=== PATIENT | female | born 1980 | race Caucasian/White ===

== ENCOUNTER 2021-03-08 16:42 | Outpatient (REF) | payer MEDICARE, MEDICAID, SELFPAY | END 2021-03-08 16:43 | disposition home or self-care (01) | LOC: HO.LNP 16:42 | PROVIDERS: Visit Provider Physician Assistant | DX: J32.9 Chronic sinusitis, unspecified (principal); Z20.822 Contact with and (suspected) exposure to COVID-19 | CPT/HCPCS: U0003; U0005 ==

== ENCOUNTER 2022-06-30 22:21 | Emergency (ER) | payer MEDICARE, MEDICAID, SELFPAY ==
[2022-06-30] VITALS (9 sets, daily range): BP systolic 86–98; BP diastolic 33–39; PULSE 60–95; RESP 18–20; O2SAT 87–96; BMI 30.3
--- NOTE | ~2022-06-30 | XR_ITS ---
EXAMINATION: XR CHEST CLINICAL INFORMATION: Hypoxia COMPARISON: None available. TECHNIQUE: Frontal view of the chest was obtained. FINDINGS: Low lung volumes. Left basilar subsegmental atelectasis. No pleural effusion. No pneumothorax. Cardiomediastinal silhouette and pulmonary vascularity are within normal limits. No acute osseous abnormalities. XR/XR chest 1V IMPRESSION: No focal consolidation.
--- NOTE | 2022-06-30 22:35 | ED.GENADULT ---
HPI - General Adult General Chief complaint: ETOH/Substance Use <Bryce Gallegos - Last Filed: 07/01/22 02:02> Stated complaint: ETOH <Bryce Gallegos - Last Filed: 07/01/22 02:02> Time Seen by Provider: 06/30/22 22:35 <Bryce Gallegos - Last Filed: 07/01/22 02:02> Source: patient, EMS, RN notes reviewed and old records reviewed <Bryce Clarky - Last Filed: 07/01/22 02:02> Mode of arrival: EMS <Bryce Gallegos - Last Filed: 07/01/22 02:02> Limitations: other (History is limited secondary to intoxication) <Bryce Gallegos - Last Filed: 07/01/22 02:02> History of Present Illness HPI narrative: 42-year-old female with past medical history significant for diabetes presents for evaluation of agitation. Apparently the patient got into an argument with her significant other earlier in the evening. She was apparently breaking into his house and ?rolling around on the floor. ? He then called 911. The police found the patient in a parked car on the side of the road She admitted to police that she smoked crack today She arrives to the ER thrashing on the stretcher, swinging and swearing at staff and stated that she does not want to be here. She does not offer any complaints <Bryce Gallegos - Last Filed: 07/01/22 02:02> Related Data Home medications: Previous Rx's Medication Instructions Recorded azithromycin 250 mg tablet 250 mg PO DAILY 5 days #6 tabs 03/08/21 (Zithromax Z-Antonio) <Bryce Gallegos - Last Filed: 07/01/22 02:02> Allergies/adverse reactions: Allergies Allergy/AdvReac Type Severity Reaction Status Date / Time ibuprofen Allergy Mild hives Verified 03/08/21 14:18 Penicillins [PENICILLINS] Allergy Unknown HIVES Verified 03/08/21 14:18 <Bryce Gallegos - Last Filed: 07/01/22 02:02> Review of Systems Review of Systems: Review of systems is limited secondary to patient's behavior <Bryce Gallegos - Last Filed: 07/01/22 02:02> [facility] Social History Social History: Social History Patient Tobacco Use Status: Former Tobacco user Smoked in Last 30 Days: No Use of substances other than those prescribed or required for medical reasons: Yes Substance Use Type: Crack/Cocaine Substance Use Frequency: Chronic Longstanding Advance Directives: No Advance Directives Information Provided: Yes Patient : No <Bryce Gallegos - Last Filed: 07/01/22 02:02> Physical Exam ED Vital Signs: Vital Signs - 24 hr 06/30/22 22:49 06/30/22 23:11 06/30/22 22:38 Temperature Pulse Rate 60 88 60 Respiratory Rate 20 18 20 Blood Pressure 86/33 L Pulse Oximetry 94 96 92 Oxygen Delivery Method Room Air Room Air Room Air Oxygen Flow Rate 06/30/22 23:50 06/30/22 22:53 06/30/22 23:08 Temperature Pulse Rate 62 88 Respiratory Rate 20 20 Blood Pressure Pulse Oximetry 87 L 91 L 96 Oxygen Delivery Method Room Air Room Air Room Air Oxygen Flow Rate 06/30/22 23:23 06/30/22 23:38 06/30/22 23:53 Temperature Pulse Rate 87 88 95 Respiratory Rate 18 18 20 Blood Pressure 98/39 L Pulse Oximetry 94 93 95 Oxygen Delivery Method Room Air Room Air Nasal Cannula Oxygen Flow Rate 2 07/01/22 00:08 07/01/22 00:23 07/01/22 02:30 Temperature Pulse Rate 88 86 91 Respiratory Rate 22 H 18 16 Blood Pressure 104/52 L 114/71 Pulse Oximetry 96 96 95 Oxygen Delivery Method Nasal Cannula Nasal Cannula Nasal Cannula Oxygen Flow Rate 2 2 2 07/01/22 04:28 07/01/22 06:23 Temperature 98.3 F 97.2 F Pulse Rate 89 76 Respiratory Rate 17 17 Blood Pressure 127/71 146/86 H Pulse Oximetry 96 94 Oxygen Delivery Method Room Air Room Air Oxygen Flow Rate BMI result Body Mass Index 30.3 <Bryce Gallegos - Last Filed: 07/01/22 02:02> Vital Signs - 24 hr 06/30/22 22:49 06/30/22 23:11 06/30/22 22:38 Temperature Pulse Rate 60 88 60 Respiratory Rate 20 18 20 Blood Pressure 86/33 L Pulse Oximetry 94 96 92 Oxygen Delivery Method Room Air Room Air Room Air Oxygen Flow Rate 06/30/22 23:50 06/30/22 22:53 06/30/22 23:08 Temperature Pulse Rate 62 88 Respiratory Rate 20 20 Blood Pressure Pulse Oximetry 87 L 91 L 96 Oxygen Delivery Method Room Air Room Air Room Air Oxygen Flow Rate 06/30/22 23:23 06/30/22 23:38 06/30/22 23:53 Temperature Pulse Rate 87 88 95 Respiratory Rate 18 18 20 Blood Pressure 98/39 L Pulse Oximetry 94 93 95 Oxygen Delivery Method Room Air Room Air Nasal Cannula Oxygen Flow Rate 2 07/01/22 00:08 07/01/22 00:23 07/01/22 02:30 Temperature Pulse Rate 88 86 91 Respiratory Rate 22 H 18 16 Blood Pressure 104/52 L 114/71 Pulse Oximetry 96 96 95 Oxygen Delivery Method Nasal Cannula Nasal Cannula Nasal Cannula Oxygen Flow Rate 2 2 2 07/01/22 04:28 07/01/22 06:23 Temperature 98.3 F 97.2 F Pulse Rate 89 76 Respiratory Rate 17 17 Blood Pressure 127/71 146/86 H Pulse Oximetry 96 94 Oxygen Delivery Method Room Air Room Air Oxygen Flow Rate BMI result Body Mass Index 30.3 <Jermaine Guzman MD - Last Filed: 07/01/22 06:58> Const General: no acute distress, alert, awake, Physically active and combative <Bryce Gallegos - Last Filed: 07/01/22 02:02> Nutritional Appearance: obese <Bryce Gallegos - Last Filed: 07/01/22 02:02> Limitations: behavioral limitations <Bryce Gallegos - Last Filed: 07/01/22 02:02> [facility] Head: Yes normocephalic and Yes atraumatic <Bryce Gallegos - Last Filed: 07/01/22 02:02> Eyes Eyelids: Yes eyelids normal <Bryce Gallegos - Last Filed: 07/01/22 02:02> Conjunctivae: conjunctivae normal <Bryce Gallegos - Last Filed: 07/01/22 02:02> Sclerae: sclerae normal <Bryce Gallegos - Last Filed: 07/01/22 02:02> Corneas: corneas normal <Bryce Gallegos - Last Filed: 07/01/22 02:02> Pupils: Equal, round and reactive pupils present <Bryce Gallegos - Last Filed: 07/01/22 02:02> EOM: EOMs intact bilaterally <Bryce Gallegos Last Filed: 07/01/22 02:02> Neck Neck: Yes full ROM <Bryce Clark Last Filed: 07/01/22 02:02> Resp Effort & Inspection: normal respiratory effort, able to speak in complete sentences and not labored <Bryce Gallegos - Last Filed: 07/01/22 02:02> GI Inspection: No Abdominal wall edema, No distended and No incision <Bryce Clark Last Filed: 07/01/22 02:02> Neuro Cranial nerves: Yes Equal, round and reactive pupils present <Bryce Gallegos - Last Filed: 07/01/22 02:02> Extrem Other: Moving all extremities well <Bryce Gallegos Last Filed: 07/01/22 02:02> Psych Appearance: disheveled <Bryce Gallegos - Last Filed: 07/01/22 02:02> Attitude: not cooperative and Belligerent attititude/behavior present <Bryce Gallegos Last Filed: 07/01/22 02:02> Course Reevaluation(s) Reevaluation #1: Patient is now much more awake, alert and oriented. She is much more cooperative as well, she is out of restraints. She did become hypoxic after being medicated. I did get a portable chest x-ray to evaluate for aspiration given her reported alcohol and cocaine abuse. Although I do feel that the epoxy was related to the sedation medications that she received for her safety. The patient offers no complaints on re-evaluation. She reports that she is homeless. The patient will be observed throughout the night and can likely be safely discharged in the morning. Patient be signed out to the overnight team pending re-evaluation and likely discharge <Bryce Gallegos - Last Filed: 07/01/22 02:02> Patient is now much more awake, alert and oriented. She is much more cooperative as well, she is out of restraints. She did become hypoxic after being medicated. I did get a portable chest x-ray to evaluate for aspiration given her reported alcohol and cocaine abuse. Although I do feel that the epoxy was related to the sedation medications that she received for her safety. The patient offers no complaints on re-evaluation. She reports that she is homeless. The patient will be observed throughout the night and can likely be safely discharged in the morning. Patient be signed out to the overnight team pending re-evaluation and likely discharge <Jermaien Guzman MD - Last Filed: 07/01/22 06:58> Time: 02:00 <Bryce Gallegos - Last Filed: 07/01/22 02:02> Reevaluation #2: Patient was awake and alert, very pleasant cooperative, she was discharged home. <Jermaine Guzman MD - Last Filed: 07/01/22 06:58> Time: 06:58 <Jermaine Guzman MD - Last Filed: 07/01/22 06:58> Medications Administered Discontinued Medications Generic Name Dose Route Start Last Admin Trade Name Freq PRN Reason Stop Dose Admin Diphenhydramine HCl 50 mg 06/30/22 22:40 06/30/22 22:38 Diphenhydramine Hcl 50 Mg/Ml Vial IM 06/30/22 22:41 50 mg ONCE ONE Administration Haloperidol Lactate 5 mg 06/30/22 22:40 06/30/22 22:38 Haloperidol Lactate 5 Mg/Ml Vial IM 06/30/22 22:41 5 mg STAT STA Administration Lorazepam 2 mg 06/30/22 22:40 06/30/22 22:38 Lorazepam 2 Mg/Ml Vial IM 06/30/22 22:41 2 mg STAT STA Administration <Bryce Gallegos - Last Filed: 07/01/22 02:02> Medications Administered Discontinued Medications Generic Name Dose Route Start Last Admin Trade Name Freq PRN Reason Stop Dose Admin Diphenhydramine HCl 50 mg 06/30/22 22:40 06/30/22 22:38 Diphenhydramine Hcl 50 Mg/Ml Vial IM 06/30/22 22:41 50 mg ONCE ONE Administration Haloperidol Lactate 5 mg 06/30/22 22:40 06/30/22 22:38 Haloperidol Lactate 5 Mg/Ml Vial IM 06/30/22 22:41 5 mg STAT STA Administration Lorazepam 2 mg 06/30/22 22:40 06/30/22 22:38 Lorazepam 2 Mg/Ml Vial IM 06/30/22 22:41 2 mg STAT STA Administration <Jermaine Guzman MD - Last Filed: 07/01/22 06:58> Medical Decision Making Medical Decision Making MDM Narrative: 10:39 p.m.. Patient arrives swearing and swinging at staff. She is a threat to herself and staff worse. She was medicated with Benadryl 50 mg, Ativan 2 mg and Haldol 5 mg all IM. <Bryce Gallegos - Last Filed: 07/01/22 02:02> Differential Diagnosis Alcohol abuse Cocaine abuse Polysubstance abuse Cassandra Psychosis <Bryce Gallegos - Last Filed: 07/01/22 02:02> Lab Data Labs: Lab Results 07/01/22 Range/Units 00:22 POC Glucose 128 H (60-115) mg/dL <Bryce Gallegos - Last Filed: 07/01/22 02:02> Lab Results 07/01/22 Range/Units 00:22 POC Glucose 128 H (60-115) mg/dL <Jermaine Guzman MD - Last Filed: 07/01/22 06:58> Discharge Plan Discharge Clinical Impression: Polysubstance abuse <Bryce Gallegos - Last Filed: 07/01/22 02:02> Patient Disposition: Home, Self-Care <Bryce Gallegos - Last Filed: 07/01/22 02:02> Instructions: Polysubstance Abuse (ED) <Bryce Gallegos - Last Filed: 07/01/22 02:02> Additional Instructions: For illicit substances including crack and cocaine. You should not drink in excess Follow-up with your primary doctor <Bryce Gallegos - Last Filed: 07/01/22 02:02> Prescriptions: No Action azithromycin [Zithromax Z-Antonio] 250 mg tablet 250 mg PO DAILY 5 Days Qty: 6 0RF Rx Instructions: 2 pills day one then 1 pill per day x 4 days <Bryce Gallegos - Last Filed: 07/01/22 02:02> Interventions: [place]-Suicide Risk Severity Scale Last Done: 07/01/22 06:20 <Bryce Gallegos - Last Filed: 07/01/22 02:02>
[2022-06-30] MEDS: LORazepam 2 MG/ML VIAL IM (22:38)
[2022-06-30] MEDS: diphenhydrAMINE HCL 50 MG/ML VIAL IM (22:38)
[2022-06-30] MEDS: Haloperidol Lactate 5 MG/ML VIAL IM (22:38)
--- NOTE | 2022-06-30 23:01 | PC.NURSE ---
late entry-this rn assumed care of pt @ 2300. pt previously chemically and physically restrained by outgoing rn per orders.
--- NOTE | 2022-06-30 23:13 | PC.NURSE ---
late entry- this rn receiving bedside report from outgoing nurse. BP at this time 86/33. jarrell sy made aware of BP at this time. per dinora sy placed pt in [place] and recheck in 30 minutes. pt remains on 15 minute checks due to physical restraints
--- NOTE | 2022-06-30 23:50 | PC.NURSE ---
this rn at bedside. spo2 desat to 87% RA. this rn placed pt on 2LPM NC spo2 95% at this time. dinora sy made aware of pt desatting to 87%, order placed for 2 LPM NC. pt remains sleeping at this time. rise and fall of chest noted
[2022-07-01 00:08] VITALS: PULSE 88; RESP 22; O2SAT 96
[2022-07-01 00:23] VITALS: BP 104/52; PULSE 86; RESP 18; O2SAT 96
--- NOTE | 2022-07-01 00:23 | PC.NURSE ---
at 0023 this rn removed all four point physical restraints. pt remained sleeping on stretcher at this time. RR 18 nonlabored. pt remains on 2LPM NC
[2022-07-01 00:25] LABS: Glucose, Whole Blood 128 mg/dL (60-115)
--- NOTE | 2022-07-01 02:15 | PC.NURSE ---
this rn made security aware of pt belongings at bedside. per security belongings may remain at bedside, security searched belongings to ensure safety.
--- NOTE | 2022-07-01 02:20 | PC.NURSE ---
late entry- this rn and hr shared services consultant changed pt into hospital gown prior to chest xray. pt compliant while changing. this rn remained at bedside during portable chest xray. pt compliant during performance of xray. pt repositioned to back at this time
[2022-07-01 02:30] VITALS: BP 114/71; PULSE 91; RESP 16; O2SAT 95
--- NOTE | 2022-07-01 03:26 | PC.NURSE ---
Late entry: pt. arrived via EMS and police escort around 2230. Pt. agitated and physically combative at this time. Pt. not alert and oriented. Pt. just yelling I don't want to be here and I need my Devan . For the safety of the pt. as well as staff, pt replaced in 4 point restraints and medically restrained. Provider at bedside. Pt. continued to thrash around on bed for about 15 minutes before becoming quiet and falling asleep. Restraint paperwork started. Report given to incoming RN at 2300.
[2022-07-01 04:28] VITALS: BP 127/71; PULSE 89; RESP 17; TEMP 36.8; O2SAT 96
--- NOTE | 2022-07-01 04:37 | PC.NURSE ---
this rn and redevelopment manager walked with pt too bathroom. pt initially unsteady. pt instructed to open eyes while walking, gait improved in doing this. pt assisted back into bed at this time. pt calm and cooperative at this time
[2022-07-01 06:23] VITALS: BP 146/86; PULSE 76; RESP 17; TEMP 36.2; O2SAT 94
--- NOTE | 2022-07-01 06:24 | PC.NURSE ---
this rn contacted [place] police dept. pt car was towed per pd pt will need to present to pd to collect proper forms to [employer] picker car. once forms are gathered [facility] pt made aware of this plan and agreeable. pt calm and cooperative. pt assisted into home clothes. charge attendant assisting in coordinating lyft ride to police station. pt denies si/hi at this time. pt feels safe to go home
--- NOTE | 2022-07-01 06:54 | PC.NURSE ---
pt able to dress self prior to discharge. pt tolerated po fluids at time of discharge. vss. skin pwd. pt ambulatory at discharge. lyft ride arranged for pt by supervisor in charge. this rn assisted pt to waiting room to await for ride. security with pt to assist with locating ride as pt states she does not have glasses with her. pt provided with discharge packet. pt verbalizes understanding of discharge plan
== END 2022-07-01 06:57 | disposition home or self-care (01) ==
PROVIDERS: Emergency Provider Emergency Medicine Emergency Medical Services
DX: F10.129 Alcohol abuse with intoxication, unspecified (principal); Y90.9 Presence of alcohol in blood, level not specified; R09.02 Hypoxemia; F14.10 Cocaine abuse, uncomplicated; Z79.899 Other long term (current) drug therapy
CPT/HCPCS: 71045; 82947; 96372; 99285; J1200; J2060

== ENCOUNTER 2024-04-07 10:38 | Emergency (ER) | payer MEDICARE, MEDICAID, SELFPAY ==
[2024-04-07 11:49] VITALS: BP 173/86; PULSE 72; RESP 18; TEMP 36.4; O2SAT 96; BMI 28.2
[2024-04-07 12:00] VITALS: BP 188/97; PULSE 70; RESP 16; TEMP 36.8; O2SAT 99
--- OUTSIDE RECORDS SUMMARY | 2024-04-07 12:02 | XMS_ITS ---
Author Organization [facility] Address [address], [place] [phone] Care Team Providers Care Computer Compositor Name Role Phone No, PCP Primary Care Provider Sandrine More Encounters Encounter Location Date Provider Diagnosis [facility] [address] [place] [phone] 02/27/2024 Sandrine Schafeer Plan Of Treatment No Information Progress Notes * Ayse MORALESDOB:1980 (43 yo F)Acc No.[id number]:02/27/2024 Case Management New Patient:?Ayse MORALES Provider:?Sandrine Schaefer :1980???Age:43 Y???Sex:Female D ate:02/27/2024 Address:[address] [id number] Pcp:PCP No Subjective: * Chief Complaints: * ??? Objective: Assessment: Plan: * Treatment: * Images: Billing Information: * Visit Code:? * Procedure Codes:? Care Plan Details* * Electronic signature of Jose Schaefer on 04/07/2024 at 12:01 PM EST Sign off status: Pending * Provider:?Sandrine Schaefer Date:? Generated for Monica dominguez/Lili/eTransmitting on:?04/07/2024 12:01 PM EST
--- OUTSIDE RECORDS SUMMARY | 2024-04-07 12:02 | XMS_ITS ---
Author Organization [facility] Address [address], [place] [phone] Care Team Providers Care Filler Block Inserter Remover Name Role Phone No, PCP Primary Care Provider Sandrine More Encounters Encounter Location Date Provider Diagnosis [facility] [address] [place] [phone] 02/23/2024 Sandrine Schaefer Plan Of Treatment No Information Progress Notes * Ayse MORALESDOB:1980 (43 yo F)Acc No.[id number]:02/23/2024 Case Management Patient:?Ayse MORALES Provider:?Sandrine Schaefer :1980???Age:43 Y???Sex:Female D ate:02/23/2024 Address:[address] [id number] Pcp:PCP No Subjective: * Chief Complaints: * ??? * Medical History:? Objective: Assessment: Plan: * Treatment: * Images: Billing Information: * Visit Code:? * Procedure Codes:? Care Plan Details* * Electronic signature of Jose Schaefer on 04/07/2024 at 12:01 PM EST Sign off status: Pending * Provider:Delmer Schaefer Date:? Generated for Monica dominguez/Lili/eTransmitting on:?04/07/2024 12:01 PM EST
--- OUTSIDE RECORDS SUMMARY | 2024-04-07 12:02 | XMS_ITS ---
Author Organization [facility] Address [address] [place] [phone] Care Team Providers Care Family Service Counselor Name Role Phone No, PCP Primary Care Provider Sandrine More [phone] Encounters Encounter Location Date Provider Diagnosis [facility] [address] [place] [phone] 02/12/2024 Sandrine Schaefer Plan Of Treatment No Information Progress Notes * Ayse MORALESDOB:1980 (43 yo F)Acc No.[id number]:02/12/2024 Case Management Patient:?DumfriesAyse kowalski Provider:?Sandrine Schaefer :1980???Age:43 Y???Sex:Female D ate:02/12/2024 Address[place] [id number] Pcp:PCP No Subjective: * Chief Complaints: * ??? * HPI: ???Social Service:?Referral Source?returning client.?Interpretation for medical provider?housing.? Client came in with documents etc. certificate., social security card to complete housing applications.Client reports still being outside due to being recently evicted. * Medical History:? Objective: Assessment: Plan: * Treatment: * Images: Billing Information: * Visit Code:? * Procedure Codes:? Care Plan Details* * Sign off status: Completed true * Provider:?Sandrine Schaefer Date:? Generated for Monica dominguez/Lili/Dashawnitting on:?04/07/2024 12:02 PM EST History and Physical Notes * HPI (History of Present Illness) Category Sub-Category Detail Notes Social Service Referral Source returning client Interpretation for medical provider hous ing
--- OUTSIDE RECORDS SUMMARY | 2024-04-07 12:02 | XMS_ITS | Patient Health Record ---
Author Organization [facility] Address [address] [place], [place] [phone] Care Team Providers Care Byproducts Operator Name Role Phone No, PCP Primary Care Provider Sandrine More Unavailable Reason For Referral No Information Encounters Encounter Location Date Provider Diagnosis [facility] [address] [place] [phone] 02/12/2024 Sandrine Schaefer [facility] [phone] 02/09/2024 Sandrine Schaefer Plan Of Treatment No Information Insurance Providers Payer Name Payer Address Payer Phone Subscriber Number Group Number Insured Name Patient Relationship to Insured Coverage Start Date Coverage End Date [place] Part [place] [employer] [address] [place] [phone] [id number] Ayse Morales Self - patient is the insured 4 4
--- NOTE | 2024-04-07 12:53 | ED_ITS ---
HPI - General Adult General Chief complaint: Skin/Abscess/Foreign Body Stated complaint: rash Time Seen by Provider: 04/07/24 11:52 History of Present Illness ED Provider: Drake Day HPI narrative: 43 yold female with pmh of DM, ashtma, depression, GERD presents to the ED for medication refill, generalized rash numbness tingling of both feet and arm. Patient denies any referred chest pain, neck pain, fever, chills, drooling, back pain, left shoulder pain, or shortness of breath. Patient states she has been without her medications for the past 2 months due to inability to get into a PCP practice.. Patient having rash since this past . Sometimes itchy. Patient denies any chest pain, back pain, urinary/bowel incontinence, upper or lower extremity weakness/paralysis. Patient need medication refill for Giardia in, lisinopril, Seroquel, paroxetine, Wellbutrin, for amantadine, gabapentin, and levothyroxine Related Data Previous Rx's ?Medication ?Instructions ?Recorded azithromycin 250 mg tablet 250 mg PO DAILY 5 days #6 tabs 03/08/21 (Zithromax Z-Antonio) albuterol sulfate 90 mcg/actuation 2 puff inhalation Q4-6H PRN 04/07/24 aerosol inhaler shortness of breath or wheezing #8.5 grams bupropion HCl 300 mg 24 hr tablet, 300 mg PO DAILY 30 days #30 tabs 04/07/24 extended release cephalexin 500 mg capsule 500 mg PO QID 7 days #28 caps 04/07/24 diphenhydramine HCl 25 mg capsule 25 mg PO TID PRN allergic reaction 04/07/24 (Benadryl) #21 caps doxycycline hyclate 100 mg capsule 100 mg PO BID 7 days #14 caps 04/07/24 empagliflozin 25 mg tablet 25 mg PO DAILY 30 days #30 tabs 04/07/24 (Jardiance) famotidine 40 mg tablet (Pepcid) 40 mg PO DAILY 30 days #30 tabs 04/07/24 gabapentin 300 mg capsule 300 mg PO TID 30 days #90 caps 04/07/24 levothyroxine 175 mcg capsule 175 mcg PO DAILY 30 days #30 caps 04/07/24 lisinopril 10 mg tablet 10 mg PO DAILY 30 days #30 tabs 04/07/24 paroxetine HCl 40 mg tablet 40 mg PO DAILY 30 days #30 tabs 04/07/24 prednisone 20 mg tablet 40 mg (2 x 20 mg) PO DAILY 5 days 04/07/24 #10 tabs quetiapine 25 mg tablet 25 mg PO BEDTIME 30 days #30 tabs 04/07/24 Allergies Allergy/AdvReac Type Severity Reaction Status Date / Time ibuprofen Allergy Mild hives Verified 04/07/24 11:52 Penicillins [PENICILLINS] Allergy Unknown HIVES Verified 04/07/24 11:52 Review of Systems 2 Review of Systems: Rash, medication refill Yes all other systems are reviewed and are negative [facility] Social History Social History Patient Tobacco Use Status: Former Tobacco user Substance Use Type: Crack/Cocaine Advance Directives: Yes Advance Directives Information Provided: Yes Advance Directives on File: No Physical Exam ED Vital Signs: Vital Signs - 24 hr 04/07/24 11:49 04/07/24 12:00 04/07/24 14:00 Temperature 97.5 F 98.3 F 97.4 F Pulse Rate 72 70 67 Respiratory Rate 18 16 16 Blood Pressure 173/86 H 188/97 H 179/88 H Pulse Oximetry 96 99 97 Oxygen Delivery Method Room Air Room Air Room Air 04/07/24 14:54 Temperature 97.4 F Pulse Rate 67 Respiratory Rate 16 Blood Pressure 179/88 H Pulse Oximetry 97 Oxygen Delivery Method Room Air BMI result Body Mass Index 28.2 Const General: cooperative, healthy appearing, comfortable, no acute distress, well developed, alert and awake Orientation/consciousness: patient oriented x3 HENMT Head: Yes normal to inspection, Yes No palpable skull fracture present, Yes normocephalic and Yes atraumatic Eyes General: appearance normal, both eyes and all related structures Neck Neck: Yes normal visual inspection, Yes full ROM, Yes no lymphadenopathy, Yes no meningeal signs, Yes trachea midline, Yes supple, No anterior neck swelling and No tender Chest Chest palpation & inspection: normal inspection of the chest and normal palpation of entire chest wall Resp Effort & Inspection: normal respiratory effort and able to speak in complete sentences Auscultation: clear to auscultation bilaterally Cardio Jugular venous distension: no JVD Heart sounds: S1 normal heart sound present and S2 normal heart sound present GI Inspection: Yes normal to inspection Palpation (GI): Soft to palpation, not firm, nontender, no guarding and not rigid General: Yes no CVA tenderness Back/Spine/Pelvis Back: no CVA tenderness and No back tenderness Skin Other: General skin exam: no rashes or lesions noted, elasticity normal and turgor normal Neuro General: patient oriented x3, gait normal, tone normal, moves all extremities, Normal light touch and pain sensation, no meningeal signs, no focal motor deficits, CN's II-XI intact bilaterally and normal sensation to monofilament Extrem General: Yes normal to inspection, Yes full ROM and Yes capillary refill normal Psych Appearance: grossly normal, well kempt and not disheveled Medical Decision Making Medical Decision Making MDM Narrative: 43-year-old female presents to ED for neuropathy of upper and lower extremities without any referred chest pain, slurred speech, nausea, vomiting, headache, or dizziness. Patient also presents to ED for medication refill. Patient has secondary complaint of generalized rash since Monday that is itchy. Patient denies any history of IV drug use but admits to polysubstance abuse. Glucose POC 137. Vital signs stable. Patient explained could be allergic reaction versus MRSA. Patient prefers oral antibiotic trial and if no improvement will agree to admission when he return to the ED. Presently not suspecting cauda equina or epidural abscess. Patient will be given refill for Jiardian, gabapentin, lisinopril, seroquel, welbutrin,famotidine, lebothyroixine, albuterol . Patient given information for home health care pharmacy. Patient explained worrisom signs and will return to the ED. not suspecting IN, epidural abscess, cauda equinus syndrome, sepsis, aortic dissection, withdrawal from drugs, stroke, slight deficiency, anyphylaxis, or any other life-threatening etiology. Patient given meds for a month. Differential Diagnosis Differential Diagnoses: The differential diagnosis associated with the presentation includes (MRSA, allergic reaction, medication refill) Admission/Observation Consideration of admission/observation: Escalation of care including admission/observation considered Lab Data Labs: Lab Results 04/07/24 Range/Units 13:02 POC Glucose 131 H (60-115) mg/dL Independent Historian Clinical information obtained from an independent historian. History obtained from or confirmed by: Other (Patient) External Record Review External record reviewed: Other (Prior visit) Discharge Plan Discharge Clinical Impression: Medication refill, Staph skin infection Patient Disposition: Home, Self-Care Instructions: Acute Rash (ED), Peripheral Neuropathy (ED), General Allergic Reaction (ED), Medicine Refill (ED) Additional Instructions: Recommend follow-up with primary care provider. Call [facility] pharmacy will make an appointment. You will be treated as possible skin infection versus allergic skin reaction. Return to the ED immediately for any chest pain, shortness of breath, weakness, dizziness, worsening rash, peeling skin, slurred speech, facial droop, paralysis of extremity, headache, nausea, referred neck pain, chest pain radiating to back, vomiting, abdominal pain, back pain, urinary/bowel incontinence, paralysis tingling of extremities, or any other concerning symptoms. Prescriptions: New doxycycline hyclate 100 mg capsule 100 mg PO BID 7 Days Qty: 14 0RF cephalexin 500 mg capsule 500 mg PO QID 7 Days Qty: 28 0RF gabapentin 300 mg capsule 300 mg PO TID 30 Days Qty: 90 0RF Jardiance 25 mg tablet 25 mg PO DAILY 30 Days Qty: 30 0RF albuterol sulfate 90 mcg/actuation HFA aerosol inhaler 2 puff inhalation Q4-6H PRN (Reason: shortness of breath or wheezing) Qty: 8.5 0RF lisinopril 10 mg tablet 10 mg PO DAILY 30 Days Qty: 30 0RF levothyroxine 175 mcg capsule 175 mcg PO DAILY 30 Days Qty: 30 0RF paroxetine HCl 40 mg tablet 40 mg PO DAILY 30 Days Qty: 30 0RF quetiapine 25 mg tablet 25 mg PO BEDTIME 30 Days Qty: 30 0RF famotidine [Pepcid] 40 mg tablet 40 mg PO DAILY 30 Days Qty: 30 0RF diphenhydramine HCl [Benadryl] 25 mg capsule 25 mg PO TID PRN (Reason: allergic reaction) Qty: 21 0RF prednisone 20 mg tablet 40 mg PO DAILY 5 Days Qty: 10 0RF bupropion HCl 300 mg tablet extended release 24 hr 300 mg PO DAILY 30 Days Qty: 30 0RF No Action azithromycin [Zithromax Z-Antonio] 250 mg tablet 250 mg PO DAILY 5 Days Qty: 6 0RF Rx Instructions: 2 pills day one then 1 pill per day x 4 days Referrals: [facility] [Provider Group] (Management of diabetes, hypertension, GERD, depression) [facility] [place] [place] [facility], Jocelyn [Provider Group] (Management of diabetes, hypertension, GERD, depression) [facility] [place] [place] Primary [facility],Ariela [Provider Group] (Management of diabetes, hypertension, GERD, depression) Stand Alone Forms: Work/School Release Interventions: ED Discharge Assessment Last Done: 04/07/24 14:54 Discharge Date/Time: 04/07/24 14:54 Print Language: Citizen Of [place]
[2024-04-07 13:06] LABS: Glucose, Whole Blood 131 mg/dL (60-115)
[2024-04-07 14:00] VITALS: BP 179/88; PULSE 67; RESP 16; TEMP 36.3; O2SAT 97
[2024-04-07 14:54] VITALS: BP 179/88; PULSE 67; RESP 16; TEMP 36.3; O2SAT 97
== END 2024-04-07 14:54 | disposition home or self-care (01) ==
PROVIDERS: Emergency Provider Emergency Medicine Emergency Medical Services
DX: A49.8 Other bacterial infections of unspecified site (principal); G57.93 Unspecified mononeuropathy of bilateral lower limbs; Z76.0 Encounter for issue of repeat prescription; R20.0 Anesthesia of skin; E11.9 Type 2 diabetes mellitus without complications; Z79.899 Other long term (current) drug therapy; Z87.891 Personal history of nicotine dependence
CPT/HCPCS: 82947; 99283

== ENCOUNTER 2024-06-15 22:26 | Emergency (ER) | payer MEDICARE, MEDICAID, SELFPAY ==
--- NOTE | ~2024-06-15 | XR_ITS ---
CLINICAL HISTORY: fall 5 view, chest and left ribs Comparison: CR/SR - XR CHEST 1V - 07/01/22 01:52 EDT Findings: No fractures or dislocations. The lungs are unremarkable. IMPRESSION: 1. No acute fractures. This document has been electronically signed by: Thanh Murphy MD on 06/16/2024 00:25:41
--- NOTE | ~2024-06-15 | XR_ITS ---
CLINICAL HISTORY: fall 3 view left shoulder Comparison: None Findings: No fractures or dislocations. No significant arthritic change. No erosions. No radiopaque foreign body. IMPRESSION: 1. No acute findings This document has been electronically signed by: Thanh Murphy MD on 06/16/2024 00:19:03
[2024-06-15 22:30] VITALS: BP 138/87; PULSE 68; RESP 18; TEMP 36.8; O2SAT 98; BMI 28.2
--- OUTSIDE RECORDS SUMMARY | 2024-06-15 22:54 | XMS_ITS | Patient Health Record ---
Author Organization [facility] Address [address], [place] [id number] Care Team Providers Care Activities Concierge Name Role Phone No, PCP Primary Care Provider Sandrine More Unavailable Reason For Referral No Information Encounters Encounter Location Date Provider Diagnosis [facility] [id number] 02/12/2024 Sandrine Schaefer [facility] [id number] 02/09/2024 Sandrine Schaefer Plan Of Treatment No Information Insurance Providers Payer Name Payer Address Payer Phone Subscriber Number Group Number Insured Name Patient Relationship to Insured Coverage Start Date Coverage End Date [place] Medicare Part [place] [employer] [address] [place] [phone] [id number] Ayse Morales Self - patient is the insured 4 4
--- OUTSIDE RECORDS SUMMARY | 2024-06-15 22:54 | XMS_ITS ---
Author Organization [facility] Address [address], [place] [id number] Care Team Providers Care Utility Helicopter Repairer Name Role Phone No, PCP Primary Care Provider Sandrine More [phone] Encounters Encounter Location Date Provider Diagnosis [facility] [address] [place] [id number] 02/27/2024 Sandrine Schaefer Plan Of Treatment No Information Progress Notes * Ayse MORALESDOB:1980 (44 yo F)Acc No.[id number]:02/27/2024 Case Management New Patient:?Ayse MORALES Provider:?Sandrine Schaefer :1980???Age:43 Y???Sex:Female D ate:02/27/2024 Address:[id number] Pcp:PCP No Subjective: * Chief Complaints: * ??? Objective: Assessment: Plan: * Treatment: * Images: Billing Information: * Visit Code:? * Procedure Codes:? Care Plan Details* * Electronic signature of Jose Schaefer on 06/15/2024 at 10:54 PM EST Sign off status: Pending * Provider:?Sandrine Schaefer Date:? Generated for Monica dominguez/Lili/eTdeloressmitting on:?06/15/2024 10:54 PM EST
--- OUTSIDE RECORDS SUMMARY | 2024-06-15 22:54 | XMS_ITS ---
Author Organization [facility] Address [address] [place] [phone] Care Team Providers Care Economics Consultant Name Role Phone No, PCP Primary Care Provider Sandrine More [phone] Encounters Encounter Location Date Provider Diagnosis [facility] [address] [place] [id number] 02/12/2024 Sandrine Schaefer Plan Of Treatment No Information Progress Notes * Ayse MORALESDOB:1980 (43 yo F)Acc No.[id number]:02/12/2024 Case Management Patient:?[place] Park[place]se [place]ki Provider:?Sandrine Schaefer :1980???Age:43 Y???Sex:Female D ate:02/12/2024 Address:[address] [id number] Pcp:PCP No Subjective: * Chief Complaints: * [...] * Provider:?Sandrine Schaefer Date:? Generated for Monica dominguez/Lili/Gavino on:?06/15/2024 10:53 PM EST History and Physical Notes * HPI (History of Present Illness) Category Sub-Category Detail Notes Social Service Referral Source returning client Interpretation for medical provider hous ing
--- OUTSIDE RECORDS SUMMARY | 2024-06-15 22:54 | XMS_ITS ---
Author Organization [facility] Address [address] [place], [place] [phone] Care Team Providers Care Human Resources Operations Coordinator Name Role Phone No, PCP Primary Care Provider Sandrine More Encounters Encounter Location Date Provider Diagnosis [facility] [address] [place] [phone] 02/23/2024 Sandrine Schaefer Plan Of Treatment No Information Progress Notes * Ayse MORALESDOB:1980 (44 yo F)Acc No.[id number]:02/23/2024 Case Management Patient:?Ayse MORALES Provider:?Sandrine Schaefer :1980???Age:43 [...] Provider:Delmer Schaefer Date:? Generated for Monica dominguez/Lili/eTransmitting on:?06/15/2024 10:54 PM EST
--- NOTE | 2024-06-15 23:20 | ED.FALL ---
HPI - Fall General Chief Complaint: Fall Stated Complaint: left shoulder inj 06/11 Time Seen by Provider: 06/15/24 23:03 Source: patient Mode of arrival: ambulatory Limitations: no limitations History of Present Illness ED Provider: HPI Narrative: Apparently patient has slipped on ice on 06/11 landed on her left side complaining of pain in the left ribs left patient does have chronic pain in the lower extremities and takes gabapentin another medication which she ran out of them for last few days Related Data Previous Rx's ?Medication ?Instructions ?Recorded azithromycin 250 mg tablet 250 mg PO DAILY 5 days #6 tabs 03/08/21 (Zithromax Z-Antonio) albuterol sulfate 90 mcg/actuation 2 puff inhalation Q4-6H PRN 04/07/24 aerosol inhaler shortness of breath or wheezing #8.5 grams bupropion HCl 300 mg 24 hr tablet, 300 mg PO DAILY 30 days #30 tabs 04/07/24 extended release cephalexin 500 mg capsule 500 mg PO QID 7 days #28 caps 04/07/24 diphenhydramine HCl 25 mg capsule 25 mg PO TID PRN allergic reaction 04/07/24 (Benadryl) #21 caps doxycycline hyclate 100 mg capsule 100 mg PO BID 7 days #14 caps 04/07/24 empagliflozin 25 mg tablet 25 mg PO DAILY 30 days #30 tabs 04/07/24 (Jardiance) famotidine 40 mg tablet (Pepcid) 40 mg PO DAILY 30 days #30 tabs 04/07/24 gabapentin 300 mg capsule 300 mg PO TID 30 days #90 caps 04/07/24 levothyroxine 175 mcg capsule 175 mcg PO DAILY 30 days #30 caps 04/07/24 lisinopril 10 mg tablet 10 mg PO DAILY 30 days #30 tabs 04/07/24 paroxetine HCl 40 mg tablet 40 mg PO DAILY 30 days #30 tabs 04/07/24 prednisone 20 mg tablet 40 mg (2 x 20 mg) PO DAILY 5 days 04/07/24 #10 tabs quetiapine 25 mg tablet 25 mg PO BEDTIME 30 days #30 tabs 04/07/24 bupropion HCl 300 mg 24 hr tablet, 300 mg PO QAM #30 tabs 06/16/24 extended release (Wellbutrin XL) empagliflozin 25 mg tablet 25 mg PO DAILY #30 tabs 06/16/24 (Jardiance) gabapentin 600 mg tablet 600 mg PO TID #90 tabs 06/16/24 levothyroxine 175 mcg capsule 175 mcg PO DAILY #30 caps 06/16/24 lisinopril 10 mg tablet 10 mg PO DAILY #30 tabs 06/16/24 oxycodone 5 mg tablet 5 mg PO Q6H PRN pain #20 tabs 06/16/24 quetiapine 25 mg tablet (Seroquel) 25 mg PO BEDTIME #30 tabs 06/16/24 Allergies Allergy/AdvReac Type Severity Reaction Status Date / Time ibuprofen Allergy Mild hives Verified 06/15/24 22:31 Penicillins [PENICILLINS] Allergy Unknown HIVES Verified 06/15/24 22:31 Review of Systems Review of Systems: Yes all other systems are reviewed and are negative [facility] Social History Social History Patient Tobacco Use Status: Former Tobacco user Smoked in Last 30 Days: No Substance Use Type: Crack/Cocaine Advance Directives: No Advance Directives Information Provided: No Do you have a plan to hurt others: No Plan Physical Exam Vital Signs: Vital Signs: Last Vital Signs Temp 98.2 F 06/16/24 01:01 Pulse 67 06/16/24 01:01 Resp 18 06/16/24 01:01 BP 146/84 H 06/16/24 01:01 Pulse Ox 98 06/15/24 22:30 O2 Del Method Room Air 06/15/24 22:30 BMI result Body Mass Index 28.2 Appearance: Alert. Oriented X3. No acute distress. Eyes: No pallor or icterus ENT: Pharynx normal. Oral Mucosa moist Neck: Normal inspection. Neck supple. CVS: Normal heart rate and rhythm. Pulses normal. Respiratory: No respiratory distress. Equal air entry bilateral, no wheezing/rales/rhonchi diffuse tenderness left lower Abdomen: Soft and nontender. Bowel sounds are present, no mass palpable, no CVA tenderness Skin: Skin warm and dry. Normal skin color. Normal skin turgor. Extremities: No lower extremity edema. No calf tenderness diffuse tenderness left shoulder increased pain on abduction notify Neuro: Oriented X 3. No motor deficit. Medications Administered Discontinued Medications Generic Name Dose Route Start Last Admin Trade Name Freq PRN Reason Stop Dose Admin Doxycycline Monohydrate 100 mg 06/16/24 00:46 06/16/24 00:59 Doxycycline Monohydrate 100 Mg Capsule PO 06/16/24 00:47 100 mg ONCE ONE Administration Gabapentin 600 mg 06/15/24 23:51 06/16/24 00:44 Gabapentin 600 Mg Tablet PO 06/15/24 23:52 600 mg ONCE ONE Administration Oxycodone HCl 5 mg 06/16/24 00:46 06/16/24 00:59 Oxycodone Hcl Immed Release 5 Mg Tablet PO 06/16/24 00:47 5 mg ONCE ONE Administration Discharge Plan Discharge Clinical Impression: Contusion of rib on left side Patient Disposition: Home, Self-Care Instructions: Rib Contusion (ED) Additional Instructions: Take pain medication as prescribed Continue rest of medication Your x-ray of the ribs negative for any fracture Prescriptions: New oxycodone 5 mg tablet 5 mg PO Q6H PRN (Reason: pain) Qty: 20 0RF Rx Instructions: Partial Fill upon patient request. Jardiance 25 mg tablet 25 mg PO DAILY Qty: 30 0RF levothyroxine 175 mcg capsule 175 mcg PO DAILY Qty: 30 0RF quetiapine [Seroquel] 25 mg tablet 25 mg PO BEDTIME Qty: 30 0RF bupropion HCl [Wellbutrin XL] 300 mg tablet extended release 24 hr 300 mg PO QAM Qty: 30 0RF gabapentin 600 mg tablet 600 mg PO TID Qty: 90 0RF lisinopril 10 mg tablet 10 mg PO DAILY Qty: 30 0RF No Action doxycycline hyclate 100 mg capsule 100 mg PO BID 7 Days Qty: 14 0RF cephalexin 500 mg capsule 500 mg PO QID 7 Days Qty: 28 0RF gabapentin 300 mg capsule 300 mg PO TID 30 Days Qty: 90 0RF Jardiance 25 mg tablet 25 mg PO DAILY 30 Days Qty: 30 0RF albuterol sulfate 90 mcg/actuation HFA aerosol inhaler 2 puff inhalation Q4-6H PRN (Reason: shortness of breath or wheezing) Qty: 8.5 0RF lisinopril 10 mg tablet 10 mg PO DAILY 30 Days Qty: 30 0RF levothyroxine 175 mcg capsule 175 mcg PO DAILY 30 Days Qty: 30 0RF paroxetine HCl 40 mg tablet 40 mg PO DAILY 30 Days Qty: 30 0RF quetiapine 25 mg tablet 25 mg PO BEDTIME 30 Days Qty: 30 0RF famotidine [Pepcid] 40 mg tablet 40 mg PO DAILY 30 Days Qty: 30 0RF diphenhydramine HCl [Benadryl] 25 mg capsule 25 mg PO TID PRN (Reason: allergic reaction) Qty: 21 0RF prednisone 20 mg tablet 40 mg PO DAILY 5 Days Qty: 10 0RF bupropion HCl 300 mg tablet extended release 24 hr 300 mg PO DAILY 30 Days Qty: 30 0RF azithromycin [Zithromax Z-Antonio] 250 mg tablet 250 mg PO DAILY 5 Days Qty: 6 0RF Rx Instructions: 2 pills day one then 1 pill per day x 4 days Print Language: Lithuanian
[2024-06-16] MEDS: Gabapentin 600 MG TABLET PO (00:44)
[2024-06-16] MEDS: oxyCODONE HCl Immed Release 5 MG TABLET PO (00:59)
[2024-06-16] MEDS: Doxycycline Monohydrate 100 MG CAPSULE PO (00:59)
[2024-06-16 01:01] VITALS: BP 146/84; PULSE 67; RESP 18; TEMP 36.8
[2024-06-16 01:16] VITALS: BP 146/84; PULSE 67; RESP 18; TEMP 36.8
== END 2024-06-16 01:16 | disposition home or self-care (01) ==
PROVIDERS: Emergency Provider Internal Medicine
DX: S20.212A Contusion of left front wall of thorax, initial encounter (principal); W00.0XXA Fall on same level due to ice and snow, initial encounter; M25.512 Pain in left shoulder; Y93.89 Activity, other specified; Y92.410 Unspecified street and highway as the place of occurrence of the external cause; Y99.9 Unspecified external cause status
CPT/HCPCS: 71101; 73030; 99283; 99284

== ENCOUNTER → 2024-06-15 23:22 | Outpatient (BNV) | payer MEDICARE, MEDICAID, SELFPAY | PROVIDERS: Emergency Provider Internal Medicine; Visit Provider Radiology Diagnostic Radiology | DX: R07.89 Other chest pain (principal); W19.XXXA Unspecified fall, initial encounter | CPT/HCPCS: 71101; 73030 ==

== ENCOUNTER 2024-06-18 14:55 | Outpatient (AMB) | payer MEDICARE, MEDICAID, SELFPAY ==
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
[2024-06-18 15:05] VITALS: BP 140/80; PULSE 89; TEMP 36.3; O2SAT 98; BMI 29.6
--- OUTSIDE RECORDS SUMMARY | 2024-06-18 18:52 | XMS_ITS ---
Author Organization [facility] Address [address], [place] [id number] Care Team Providers Care [employer] Name Role Phone No, PCP Primary Care Provider Sandrine More Encounters Encounter Location Date Provider Diagnosis [facility] [address] [place] [phone] 02/23/2024 Sandrine Schaefer Plan Of Treatment No Information Progress Notes * Ayse MORALESDOB:1980 (44 yo F)Acc No.[id number]:02/23/2024 Case Management Patient:?Ayse MORALES Provider:?Sandrine Schaefer :1980???Age:43 Y???Sex:Female D ate:02/23/2024 Address:[id number] Pcp:PCP No Subjective: * Chief Complaints: * ??? * Medical History:? Objective: Assessment: Plan: * Treatment: * Images: Billing Information: * Visit Code:? * Procedure Codes:? Care Plan Details* * Electronic signature of Jose Schaefer on 06/18/2024 at 06:52 PM EST Sign off status: Pending * Provider:Delmer Schaefer Date:? Generated for Monica dominguez/Lili/eTransmitting on:?06/18/2024 06:52 PM EST
--- OUTSIDE RECORDS SUMMARY | 2024-06-18 18:52 | XMS_ITS ---
Author Organization [facility] Address [address] [place] [phone] Care Team Providers Care Veneer Press Operator Name Role Phone No, PCP Primary Care Provider Sandrine More Encounters Encounter Location Date Provider Diagnosis [facility] [address] [place] [phone] 02/12/2024 Sandrine Schaefer Plan Of Treatment No Information Progress Notes * Ayse MORALESDOB:1980 (43 yo F)Acc No.[id number]:02/12/2024 Case Management Patient:?Reid Hope KingAyse kowalski Provider:?Sandrine Schaefer :1980???Age:43 Y???Sex:Female D ate:02/12/2024 Address:[id number] Pcp:PCP No Subjective: * Chief Complaints: * [...] Provider:?Sandrine Schaefer Date:? Generated for Monica dominguez/Lili/Gavino on:?06/18/2024 06:51 PM EST History and Physical Notes * HPI (History of Present Illness) Category Sub-Category Detail Notes Social Service Referral Source returning client Interpretation for medical provider hous ing
--- OUTSIDE RECORDS SUMMARY | 2024-06-18 18:52 | XMS_ITS | Patient Health Record ---
Author Organization [facility] Address [address], [place] [phone] Care Team Providers Care Electrical And Instrumentation Mechanic Name Role Phone No, PCP Primary Care Provider Sandrine More Unavailable Reason For Referral No Information Encounters Encounter Location Date Provider Diagnosis [facility] [phone] 02/12/2024 Sandrine Schaefer [facility] [phone] 02/09/2024 Sandrine Schaeefr Plan Of Treatment No Information Insurance Providers Payer Name Payer Address Payer Phone Subscriber Number Group Number Insured Name Patient Relationship to Insured Coverage Start Date Coverage End Date [place] Medicare Part [place] [employer] [address] [place] [address] [id number] Ayse Morales Self - patient is the insured 4 4
--- OUTSIDE RECORDS SUMMARY | 2024-06-18 18:52 | XMS_ITS ---
Author Organization [facility] Address [address] [place], [place] [phone] Care Team Providers Care Ballet Master/Mistress Name Role Phone No, PCP Primary Care Provider Sandrine More Encounters Encounter Location Date Provider Diagnosis [facility] [address] [place] [phone] 02/27/2024 Sandrine Schaefer Plan Of Treatment No Information Progress Notes * Ayse MORALESDOB:1980 (44 yo F)Acc No.[id number]:02/27/2024 Case Management New Patient:?Ayse MORALES Provider:?Sandrine Schaefer [...] Provider:?Sandrine Schaefer Date:? Generated for Monica dominguez/Lili/eTdeloressmitting on:?06/18/2024 06:52 PM EST
== END 2024-06-18 16:17 | disposition home or self-care (01) ==
DX: E11.40 Type 2 diabetes mellitus with diabetic neuropathy, unspecified (principal); F33.40 Major depressive disorder, recurrent, in remission, unspecified; J45.909 Unspecified asthma, uncomplicated; K21.9 Gastro-esophageal reflux disease without esophagitis; G25.81 Restless legs syndrome; L03.90 Cellulitis, unspecified; Z98.1 Arthrodesis status; I10 Essential (primary) hypertension; E03.9 Hypothyroidism, unspecified; M25.512 Pain in left shoulder; R07.81 Pleurodynia; G43.909 Migraine, unspecified, not intractable, without status migrainosus

== ENCOUNTER → 2024-06-18 14:55 | Outpatient (BNVA) | payer MEDICARE, MEDICAID, SELFPAY | DX: J45.909 Unspecified asthma, uncomplicated (principal); F33.40 Major depressive disorder, recurrent, in remission, unspecified; K21.9 Gastro-esophageal reflux disease without esophagitis; G25.81 Restless legs syndrome; L03.90 Cellulitis, unspecified; I10 Essential (primary) hypertension; E03.9 Hypothyroidism, unspecified; E11.40 Type 2 diabetes mellitus with diabetic neuropathy, unspecified; M25.512 Pain in left shoulder; R07.81 Pleurodynia; G43.909 Migraine, unspecified, not intractable, without status migrainosus; M54.9 Dorsalgia, unspecified; G89.29 Other chronic pain; G62.9 Polyneuropathy, unspecified; Z98.1 Arthrodesis status | CPT/HCPCS: 96127; 99202 ==

== ENCOUNTER 2024-08-20 13:43 | Emergency (ER) | payer MEDICARE, MEDICAID, SELFPAY ==
--- NOTE | ~2024-08-20 | XR_ITS ---
EXAMINATION: XR CHEST CLINICAL INFORMATION: Chest pain COMPARISON: 06/15/2024, 07/01/2022. TECHNIQUE: Frontal view of the chest was obtained. FINDINGS: The cardiac, hilar, and mediastinal contours are normal. The lungs are clear bilaterally. No pneumothorax or effusion. No focal osseous or soft tissue abnormality. Partially imaged inferior cervical fusion hardware. XR/XR chest 1V IMPRESSION: Normal chest. Electronically signed by: Juan Luis Taylor MD 08/20/2024 02:29 PM EDT
[2024-08-20 14:07] VITALS: BP 163/85; PULSE 84; RESP 22; TEMP 36.6; O2SAT 96; BMI 28.6
--- NOTE | 2024-08-20 14:14 | ECG_ITS ---
Test Reason : SOB Blood Pressure : */* mmHG Vent. Rate : 75 BPM Atrial Rate : 75 BPM P-R Int : 144 ms QRS Dur : 98 ms QT Int : 360 ms P-R-T Axes : 42 -20 13 degrees QTcB Int : 402 ms Normal sinus rhythm Incomplete right bundle branch block Moderate voltage criteria for LVH, may be normal variant ( R in aVL , Corey product ) Possible Anterior infarct , age undetermined Abnormal ECG No previous ECGs available Referred By: Drake Day Electronically Signed By: YVETTE VALDES
--- NOTE | 2024-08-20 14:17 | ED.GENADULT ---
HPI - General Adult General Chief complaint: Dyspnea Stated complaint: Difficulty breathing History of Present Illness HPI narrative: Patient left before completion of treatment by ED provider. Related Data Home Medications ?Medication ?Instructions ?Recorded ?Confirmed albuterol 90 mcg/actuation aerosol 180 mcg inhalation DAILY 06/18/24 06/18/24 inhaler blood sugar diagnostic (OneTouch #10 ea 06/18/24 06/18/24 Ultra Test strips) blood-glucose meter (OneTouch #1 ea 06/18/24 06/18/24 Ultra2 Meter) famotidine 20 mg tablet 20 mg PO BID 06/18/24 06/18/24 loratadine 10 mg tablet 10 mg PO DAILY 06/18/24 06/18/24 melatonin 3 mg tablet 3 mg PO BEDTIME PRN 06/18/24 06/18/24 quetiapine 400 mg tablet 400 mg PO BEDTIME 06/18/24 06/18/24 ropinirole 0.5 mg tablet 0.5 mg PO BID 06/18/24 06/18/24 ropinirole 1 mg tablet 1.5 mg PO BEDTIME 06/18/24 06/18/24 topiramate 100 mg tablet 100 mg PO BID 06/18/24 06/18/24 Previous Rx's ?Medication ?Instructions ?Recorded albuterol sulfate 90 mcg/actuation 2 puff inhalation Q4-6H PRN 04/07/24 aerosol inhaler shortness of breath or wheezing #8.5 grams diphenhydramine HCl 25 mg capsule 25 mg PO TID PRN allergic reaction 04/07/24 (Benadryl) #21 caps paroxetine HCl 40 mg tablet 40 mg PO DAILY 30 days #30 tabs 04/07/24 bupropion HCl 300 mg 24 hr tablet, 300 mg PO QAM #30 tabs 06/16/24 extended release (Wellbutrin XL) doxycycline hyclate 100 mg tablet 100 mg PO BID #20 tabs 06/16/24 gabapentin 600 mg tablet 600 mg PO TID #90 tabs 06/16/24 levothyroxine 175 mcg capsule 175 mcg PO DAILY #30 caps 06/16/24 oxycodone 5 mg tablet 5 mg PO Q6H PRN pain #20 tabs 06/16/24 fluticasone propionate 50 1 spray intranasal BID #16 grams 06/18/24 mcg/actuation nasal spray,suspension (Flonase Allergy Relief) blood sugar diagnostic (OneTouch #50 ea 06/19/24 Ultra Test strips) blood-glucose meter (OneTouch #1 ea 06/19/24 Ultra2 Meter) lancets 28 gauge (FreeStyle #50 ea 06/19/24 Lancets) lisinopril 10 mg tablet 10 mg PO DAILY #90 tabs 06/20/24 empagliflozin 25 mg tablet 25 mg PO DAILY #30 tabs 07/18/24 (Jardiance) quetiapine 50 mg tablet 50 mg PO BEDTIME #30 tabs 07/18/24 Allergies Allergy/AdvReac Type Severity Reaction Status Date / Time dulaglutide [From Trulicity] Allergy Intermediate weird Verified 08/20/24 14:10 feeling of body ibuprofen Allergy Mild hives Verified 08/20/24 14:10 Penicillins [PENICILLINS] Allergy Unknown HIVES Verified 08/20/24 14:10 PMFSH Past Medical History Medical History (Updated 08/22/24 @ 00:16 by KISHORE Holland) Cellulitis of skin Restless legs syndrome High cholesterol Fatty liver GERD (gastroesophageal reflux disease) History of suicidal ideation Depression Asthma Diabetes mellitus HTN (hypertension) Hypothyroidism Surgical History (Updated 06/19/24 @ 20:07 by JAN Narayanan) History of elbow surgery History of tubal ligation History of spinal fusion Family History Family History (Updated 06/19/24 @ 06:11 by JAN Narayanan) Mother Diabetes mellitus Father Diabetes mellitus Sister Diabetes mellitus Other Mental health disorder Substance use disorder Social History Social History Housing: Apartment Alcohol intake: current Alcohol intake frequency: a few times a month Patient Tobacco Use Status: Former Tobacco user Tobacco use type: Cigarette e-Cigarette/Vaping Use: Currently Using Second Hand Smoke Exposure: Yes Substance Use Type: Crack/Cocaine service: No Current occupational status: disabled Cognitive needs: Yes (Cane,) Hearing needs: No Vision needs: Yes (Glasses) Physical Exam ED Vital Signs: Vital Signs - 24 hr 08/20/24 14:07 Temperature 97.8 F Pulse Rate 84 Respiratory Rate 22 H Blood Pressure 163/85 H Pulse Oximetry 96 Oxygen Delivery Method Room Air BMI result Body Mass Index 28.6 Course Course Course Narrative: RME: 44-year-old female presents to ED for coughing wheezing increased shortness of breath we will body aches for the past couple of days. Patient also had multiple open wounds with bilateral leg that has been chronic for months and arms that she scratched all the time. Patient states no one has been able to help her of this elevate. Patient denies any fever. Physical exam positive for wheezing Romel's. Positive for chronic bilateral lower extremity wounds with exocirations Medications Administered Discontinued Medications Generic Name Dose Route Start Last Admin Trade Name Freq PRN Reason Stop Dose Admin Albuterol Sulfate 8 puff 08/20/24 14:28 08/20/24 14:45 Albuterol Sulfate 90 Mcg 8 Gm Inhaler INHALE 08/20/24 14:29 8 puff ONCE ONE Administration Medical Decision Making Lab Data 08/20/24 14:40 08/20/24 14:40 Labs: Lab Results 08/20/24 Range/Units 14:40 WBC 11.1 H (4.8-10.8) X10*3/uL RBC 4.47 (4.20-5.50) X10*6/uL Hgb 13.9 (12.0-16.0) g/dl Hct 40.2 (37.0-47.0) % MCV 89.9 (80.0-98.0) fL MCH 31.1 (27.0-33.0) pg MCHC 34.6 (31.0-35.0) g/dl RDW 13.2 (11.0-16.0) % Plt Count 224 (160-400) X10*3/uL MPV 10.5 (9.4-12.3) fL Immature Gran % (Auto) 0.5 H (0.0-0.4) % Neut % (Auto) 70.9 (45-73) % Lymph % (Auto) 17.9 L (20-40) % [place] % (Auto) 7.8 (2-11) % Eos % (Auto) 2.6 (0-4) % Baso % (Auto) 0.3 (0-2) % Lymph # (Auto) 2.0 (1.2-4.9) X10*3/uL [place] # (Auto) 0.9 (0.1-1.2) X10*3/uL Eos # (Auto) 0.3 (0.0-0.4) X10*3/uL Baso # (Auto) 0.0 (0.0-0.2) X10*3/uL Abs Immat Gran (auto) 0.06 H (0.00-0.03) X10*3/uL Absolute Neuts (auto) 7.8 (2.0-8.3) x10*3/uL Absolute Nucleated RBC 0.000 (0.0-0.012) X10*3/uL Nucleated RBC % (auto) 0.0 (0.0-0.2) /100WBC Sodium 139 (135-145) mmol/L Potassium 3.7 (3.3-5.1) mmol/L Chloride 106 (96-108) mmol/L Carbon Dioxide 25 (22-29) mmol/L Anion Gap 12 (12-20) BUN 15 (9-16) mg/dL Creatinine 0.72 (0.5-1.4) mg/dL Estim Creat Clear Calc 104.5 Estimated GFR > 60 Random Glucose 174 H (60-115) mg/dL Calcium 9.0 (8.4-10.2) mg/dL Total Bilirubin 0.2 (0.0-1.0) mg/dL AST 35 H (5-31) U/L ALT 46 H (0-31) U/L Alkaline Phosphatase 73 (39-117) U/L Troponin I High Sens 9.6 (<3.5-17.0) ng/L B-Natriuretic Peptide 33 (<100) pg/mL Total Protein 7.2 (6.5-8.0) g/dL Albumin 4.1 (3.5-5.0) g/dL Influenza Type A (PCR) NEGATIVE (Negative) Influenza Type B (PCR) NEGATIVE (Negative) RSV RNA Qual (PCR) NEGATIVE (Negative) SARS-CoV-2 RNA (RT-PCR) NEGATIVE (Negative) S. pyogenes GrpA CAROL Negative (Negative) Discharge Plan Discharge Clinical Impression: URI (upper respiratory infection) Patient Disposition: Left W/O Completing Treatment Prescriptions: No Action lisinopril 10 mg tablet 10 mg PO DAILY Qty: 90 0RF Jardiance 25 mg tablet 25 mg PO DAILY Qty: 30 0RF quetiapine 50 mg tablet 50 mg PO BEDTIME Qty: 30 2RF albuterol sulfate 90 mcg/actuation HFA aerosol inhaler 2 puff inhalation Q4-6H PRN (Reason: shortness of breath or wheezing) Qty: 8.5 0RF paroxetine HCl 40 mg tablet 40 mg PO DAILY 30 Days Qty: 30 0RF diphenhydramine HCl [Benadryl] 25 mg capsule 25 mg PO TID PRN (Reason: allergic reaction) Qty: 21 0RF oxycodone 5 mg tablet 5 mg PO Q6H PRN (Reason: pain) Qty: 20 0RF Rx Instructions: Partial Fill upon patient request. levothyroxine 175 mcg capsule 175 mcg PO DAILY Qty: 30 0RF bupropion HCl [Wellbutrin XL] 300 mg tablet extended release 24 hr 300 mg PO QAM Qty: 30 0RF gabapentin 600 mg tablet 600 mg PO TID Qty: 90 0RF doxycycline hyclate 100 mg tablet 100 mg PO BID Qty: 20 0RF quetiapine 400 mg tablet 400 mg PO BEDTIME (DME) OneTouch Ultra Test Strip See Rx Instructions .ROUTE TID Qty: 10 Rx Instructions: two times a day (DME) blood-glucose meter [OneTouch Ultra2 Meter] Misc See Rx Instructions .ROUTE TID Qty: 1 Rx Instructions: test twice a day melatonin 3 mg tablet 3 mg PO BEDTIME PRN famotidine 20 mg tablet 20 mg PO BID albuterol 90 mcg/actuation aerosol 180 mcg inhalation DAILY loratadine 10 mg tablet 10 mg PO DAILY ropinirole 0.5 mg tablet 0.5 mg PO BID ropinirole 1 mg tablet 1.5 mg PO BEDTIME Rx Instructions: administer 1-3 hours before bedtime topiramate 100 mg tablet 100 mg PO BID fluticasone propionate [Flonase Allergy Relief] 50 mcg/actuation spray,suspension 1 spray intranasal BID Qty: 16 0RF Rx Instructions: administer into each nostril (DME) blood-glucose meter [OneTouch Ultra2 Meter] Misc See Rx Instructions .ROUTE TID Qty: 1 0RF Rx Instructions: test twice a day (DME) lancets [FreeStyle Lancets] 28 gauge misc See Rx Instructions miscellaneous .MEDSUPPLY Qty: 50 3RF Rx Instructions: As directed check blood sugar two times a day (DME) OneTouch Ultra Test Strip See Rx Instructions .ROUTE TID Qty: 50 3RF Rx Instructions: two times a day Discharge Date/Time: 08/20/24 17:27
[2024-08-20] MEDS: Albuterol Sulfate 90 MCG 8 GM INHALER 8 PUFF INHALE (14:45)
[2024-08-20 14:47] LABS: MANUAL DIFF FLAG NO
[2024-08-20 14:51] LABS: Basophils Percent Auto 0.3 % (0-2); Eosinophils Absolute Auto 0.3 X10*3/uL (0.0-0.4); Eosinophils Percent Auto 2.6 % (0-4); Hematocrit 40.2 % (37.0-47.0); Hemoglobin 13.9 g/dl (12.0-16.0); Imm Gran Abs Auto 0.06 X10*3/uL (0.00-0.03); Imm Gran Pct Auto 0.5 % (0.0-0.4); Lymphocytes Percent Auto 17.9 % (20-40); Mean Corpuscular HGB Conc 34.6 g/dl (31.0-35.0); Mean Corpuscular Hemoglobin 31.1 pg (27.0-33.0); Mean Corpuscular Volume 89.9 fL (80.0-98.0); Mean Platelet Volume 10.5 fL (9.4-12.3); Monocytes Absolute Auto 0.9 X10*3/uL (0.1-1.2); Monocytes Percent Auto 7.8 % (2-11); Neutrophils Absolute Auto 7.8 x10*3/uL (2.0-8.3); Neutrophils Percent Auto 70.9 % (45-73); Platelet Count 224 X10*3/uL (160-400); Red Blood Count 4.47 X10*6/uL (4.20-5.50); Red Cell Distribution Width 13.2 % (11.0-16.0); White Blood Count 11.1 X10*3/uL (4.8-10.8)
[2024-08-20 14:57] LABS: IDNOW Serial# 55D5AD1C; Strep A Nucleic Acid Negative (Negative)
[2024-08-20 15:00] VITALS: PULSE 84; RESP 19; O2SAT 97
[2024-08-20 15:09] LABS: Anion Gap 12 (12-20)
[2024-08-20 15:15] LABS: B Type Natriuretic Peptide 33 pg/mL (<100)
[2024-08-20 15:18] LABS: Troponin-I High Sensitivity 9.6 ng/L (<3.5-17.0)
[2024-08-20 15:20] LABS: Alanine Aminotransferase 46 U/L (0-31); Albumin Level 4.1 g/dL (3.5-5.0); Aspartate Amino Transferase 35 U/L (5-31); Bilirubin Total 0.2 mg/dL (0.0-1.0); Blood Urea Nitrogen 15 mg/dL (9-16); Carbon Dioxide 25 mmol/L (22-29); Chloride 106 mmol/L (96-108); Creatinine Clr Calc Pharmacy 104.5; Estimated Glomerular Filt Rate > 60; Glucose Random 174 mg/dL (60-115); Potassium 3.7 mmol/L (3.3-5.1); Sodium 139 mmol/L (135-145); Total Protein 7.2 g/dL (6.5-8.0)
--- NOTE | 2024-08-20 15:20 | PC.NURSE ---
SHAYNA changed to 3 from 2 d/t work up completed at this time. Pt sitting in waiting room currently walking around, eating and drinking in waiting room.
[2024-08-20 15:31] LABS: Influenza A PCR NEGATIVE (Negative); Influenza B PCR NEGATIVE (Negative); Resp Syncy Virus RNA Qual PCR NEGATIVE (Negative); SARS COV2 PCR INHOUSE NEGATIVE (Negative)
--- OUTSIDE RECORDS SUMMARY | 2024-08-20 17:27 | XMS_ITS ---
Author Organization [facility] Address [address] [place], [place] [phone] Care Team Providers Care Bar Tacker Sewing Machine Name Role Phone No, PCP Primary Care Provider Sandrine More Encounters Encounter Location Date Provider Diagnosis [facility] [address] [place] [phone] 02/27/2024 Sandrine Schaefer Plan Of Treatment No Information Progress Notes * Ayse MORALESDOB:1980 (44 yo F)Acc No.[id number]:02/27/2024 Case Management New Patient:?Ayse MORALES Provider:?Sandrine Schaefer :1980???Age:43 Y???Sex:Female D ate:02/27/2024 Address:[place] [id number] Pcp:PCP No Subjective: * Chief Complaints: * ??? Objective: Assessment: Plan: * Treatment: * Images: Billing Information: * Visit Code:? * Procedure Codes:? Care Plan Details* * Electronic signature of Jose Schaefer on 08/20/2024 at 05:27 PM EDT Sign off status: Pending * Provider:Delmer Schaefer Date:? Generated for Monica dominguez/Lili/eTransmitting on:?08/20/2024 05:27 PM EDT
--- OUTSIDE RECORDS SUMMARY | 2024-08-20 17:27 | XMS_ITS ---
Author Organization [facility] Address [address] [place], [place] [phone] Care Team Providers Care Geotechnicial Properties Technician Name Role Phone No, PCP Primary Care Provider Sandrine More [phone] Encounters Encounter Location Date Provider Diagnosis [facility] [address] [place] [phone] 02/23/2024 Sandrine Schaefer Plan Of Treatment No Information Progress Notes * Ayse MORALESDOB:1980 (44 yo F)Acc No.[id number]:02/23/2024 Case Management Patient:?Ayse MORALES Provider:?Sandrine Schaefer :1980???Age:43 [...]
[2024-08-20 17:29] LABS: Alkaline Phosphatase 73 U/L (39-117)
== END 2024-08-20 17:27 | disposition left against medical advice (07) ==
PROVIDERS: Physician Assistant; Emergency Provider Emergency Medicine
DX: J06.9 Acute upper respiratory infection, unspecified (principal); R06.00 Dyspnea, unspecified; Z03.818 Encounter for observation for suspected exposure to other biological agents ruled out; Z87.891 Personal history of nicotine dependence; J45.909 Unspecified asthma, uncomplicated
CPT/HCPCS: 0241U; 36415; 71045; 80053; 83880; 84484; 85025; 87651; 93005; 94640; 94664; 99284

== ENCOUNTER → 2024-08-20 14:11 | Outpatient (BNV) | payer MEDICARE, MEDICAID, SELFPAY | PROVIDERS: Visit Provider Radiology Diagnostic Radiology | DX: R07.9 Chest pain, unspecified (principal) | CPT/HCPCS: 71045 ==

== ENCOUNTER → 2024-08-20 14:14 | Outpatient (BNV) | payer MEDICARE, MEDICAID, SELFPAY | PROVIDERS: Emergency Provider Emergency Medicine; Visit Provider Internal Medicine | DX: I45.10 Unspecified right bundle-branch block (principal) | CPT/HCPCS: 93010 ==